=== PATIENT | female | born 1945 | race Caucasian/White ===

== ENCOUNTER 2019-12-14 04:22 | Inpatient (IN) | payer OTHER, BC ==
[2019-12-13 15:30] VITALS: BMI 35.2
[2019-12-14] MEDS ORDERED: DEXAMETHASONE SOD PHOSPHATE/PF 10 MG/ML SDV ONE (07:41)
[2019-12-14] MEDS ORDERED: BUPIVACAINE LIPOSOME/PF (EXPAREL) 266 MG/20 ML VIAL ONE (07:42)
[2019-12-14] MEDS ORDERED: MIDAZOLAM HCL 2 MG/2 ML SINGLE DOSE VIAL ONE ×4 (07:43→07:47)
[2019-12-14] MEDS ORDERED: EPHEDRINE SULFATE/0.9% NACL/PF 50 MG/10 ML SYRINGE NR ONE (07:47)
[2019-12-14] MEDS ORDERED: PROPOFOL 20 ML ONE ×7 (07:47→12:35)
[2019-12-14] MEDS ORDERED: SUCCINYLCHOLINE CHLORIDE 200 MG/10 ML SYRINGE ONE (07:47)
[2019-12-14] MEDS ORDERED: BENZOIN/ALOE VERA/STORAX/TOLU 58 ML BOTTLE ONE (07:50)
[2019-12-14] MEDS ORDERED: DEXMEDETOMIDINE HCL 200 MCG/2 ML IVPB ONE (07:56)
[2019-12-14] MEDS ORDERED: ceFAZolin SODIUM 1 GM VIAL IVPB ONE ×3 (08:40→11:38)
[2019-12-14] MEDS ORDERED: VANCOMYCIN 1,000 MG VIAL (RESTRICTED TO ID ONLY) IVPB ONE ×2 (08:47→11:32)
[2019-12-14] MEDS ORDERED: ceFAZolin SODIUM 1 GM VIAL ONE ×2 (11:42→11:48)
[2019-12-14] MEDS ORDERED: TRANEXAMIC ACID 1000 MG/10 ML VIAL ONE ×2 (11:42→11:48)
[2019-12-14] MEDS ORDERED: DEXAMETHASONE SOD PHOSPHATE 4 MG/1 ML VIAL ONE (11:48)
[2019-12-14] MEDS ORDERED: ONDANSETRON 4 MG/2 ML VIAL ONE (11:48)
[2019-12-14] MEDS ORDERED: VANCOMYCIN 1,000 MG VIAL (RESTRICTED TO ID ONLY) ONE (11:48)
[2019-12-14] MEDS ORDERED: LIDOCAINE HCL/PF 2% SDV 5ML VIAL ONE (11:48)
[2019-12-14] MEDS ORDERED: MAG HYDROX/AL HYDROX/SIMETH 30 ML UNIT-DOSE CUP PO PRN (12:25)
[2019-12-14] MEDS ORDERED: ONDANSETRON 4 MG/2 ML VIAL IVPUSH PRN (12:25)
[2019-12-14] MEDS ORDERED: MECLIZINE HCL 25 MG TABLET (FP) PO PRN (12:25)
[2019-12-14] MEDS ORDERED: MAGNESIUM HYDROX 2400MG/30ML ORAL SUSPENSION 30 ML CUP PO PRN (12:25)
[2019-12-14] MEDS ORDERED: ALBUTEROL SO4 HFA INHALER IH PRN ×2 (12:25→21:53)
[2019-12-14] MEDS ORDERED: CYCLOBENZAPRINE HCL 10 MG TABLET (FP) PO PRN (12:25)
--- NOTE | 2019-12-14 12:25 | PN ---
Progress Note (short form) - Note Progress Note: 74F s/p revision LEFT total knee replacement POD #0. -Admit to ICU post-op. -f/u PACU CBC; If Hemoglobin <10 or Hematocrit <30, transfuse PRBC. -Pain control: per anaesthesia team. -DVT PPx: -Chemical: ASA 81mg PO BID x 6 weeks. -Mechanical: SHAYLA's, SCD's. -Incentive spirometry q15 min. -PT/OT/Rehab, OOB. -WBAT LLE. -Post-op Ancef x 3 doses. -f/u drain output. -Padron catheter care. -f/u post-op TOV: 8 hours max. -f/u AM labs. -Diet as tolerated. -Care per medical hospitalist team. -Discharge planning: f/u [facility] [place] [facility] 7-10 days post hospital discharge; call for appointment . -Will follow. Jesus Egan MD (Orthopaedic Surgery).
[2019-12-14] MEDS ORDERED: LACTATED RINGERS SOLUTION 1,000 ML IV SCH (12:30)
[2019-12-14] MEDS ORDERED: DOCUSATE SODIUM 100 MG CAPSULE (FP) PO PRN (12:47)
[2019-12-14] MEDS ORDERED: HYDROmorphone HCL 2 MG TABLET PO PRN (12:47)
[2019-12-14] MEDS ORDERED: ARTIFICIAL TEARS (POLYVINYL ALCOHOL) OPTH DROPS OU ONE (14:20)
[2019-12-14] MEDS: ACETAMINOPHEN 325 MG TABLET (FP) PO SCH ×3 (18:33→23:55)
[2019-12-14] MEDS: CEFAZOLIN 2 GM/D5W 2 GM/50 ML ML IVPB SCH (18:35)
--- NOTE | 2019-12-14 22:18 | CONSULT ---
Consultation: REQUESTING PROVIDER: Dr. Egan CONSULT REQUEST: We have been asked to medically evaluate this patient for ICU admission HISTORY OF PRESENT ILLNESS: 74F s/p revision LEFT total knee replacement POD #0. In ICU post op for treatment/management. Pain well controlled. REVIEW OF SYSTEMS: CONSTITUTIONAL: Absent: fever, chills, diaphoresis, generalized weakness, malaise, loss of appetite, weight change HEENT: Absent: rhinorrhea, nasal congestion, throat pain, throat swelling, difficulty swallowing, mouth swelling, ear pain, eye pain, visual changes CARDIOVASCULAR: Absent: chest pain, syncope, palpitations, irregular heart rate, lightheadedness, peripheral edema RESPIRATORY: Absent: cough, shortness of breath, dyspnea with exertion, orthopnea, wheezing, stridor, hemoptysis GASTROINTESTINAL: Absent: abdominal pain, abdominal distension, nausea, vomiting, diarrhea, constipation, melena, hematochezia GENITOURINARY: Absent: dysuria, frequency, urgency, hesitancy, hematuria, flank pain, genital pain MUSCULOSKELETAL: L knee pain Absent: myalgia, arthralgia, joint swelling, back pain, neck pain SKIN: Absent: rash, itching, pallor HEMATOLOGIC/IMMUNOLOGIC: Absent: easy bleeding, easy bruising, lymphadenopathy, frequent infections ENDOCRINE: Absent: unexplained weight gain, unexplained weight loss, heat intolerance, cold intolerance NEUROLOGIC: Absent: headache, focal weakness or paresthesias, dizziness, unsteady gait, seizure, mental status changes, bladder or bowel incontinence PSYCHIATRIC: Absent: anxiety, depression, suicidal or homicidal ideation, hallucinations. PHYSICAL EXAMINATION Vital Signs 12/14/19 12/14/19 12/14/19 14:00 14:15 14:40 Temperature 97.5 F L 98.0 F Pulse Rate 56 L 54 L 52 L Respiratory 16 16 13 Rate Blood Pressure 110/80 106/75 116/80 O2 Sat by Pulse 100 100 100 Oximetry (%) 12/14/19 12/14/19 12/14/19 15:00 16:00 17:00 Temperature 98.1 F Pulse Rate 62 70 Respiratory 16 16 Rate Blood Pressure 117/77 115/67 O2 Sat by Pulse 100 100 96 Oximetry (%) GENERAL: Awake, alert, and fully oriented, in no acute distress. HEAD: Normal with no signs of trauma. EYES: PERRL, EOMI ENT: Moist mucous membranes. NECK: normal ROM, supple LUNGS: CTA BL HEART: RRR ABDOMEN: Soft, nontender, not distended MUSCULOSKELETAL: L knee banaged post op, drain in place. R leg FROM UPPER EXTREMITIES: No peripheral edema. LOWER EXTREMITIES: No peripheral edema in R leg. Slight swelling from surgery L leg NEUROLOGICAL: Cranial nerves II-XII intact. Normal speech PSYCHIATRIC: Cooperative. SKIN: Warm, dry, no rashes or lesions noted. Active Medications Generic Name Dose Route Start Last Admin Trade Name Freq PRN Reason Stop Dose Admin Acetaminophen 650 mg 12/14/19 12:45 12/14/19 19:07 Tylenol - PO 12/17/19 12:44 Not Given Q6H MARISELA Al Hydroxide/Mg Hydroxide 30 ml 12/14/19 12:25 Mylanta Oral Suspension - PO Q4H PRN DYSPEPSIA Albuterol Sulfate 2 puff 12/14/19 21:53 Ventolin Hfa Inhaler - IH Q4H PRN WHEEZING Aspirin 81 mg 12/14/19 22:00 Ecotrin - PO BID [facility] Celecoxib 200 mg 12/15/19 10:00 Celebrex - PO DAILY [facility] Clonazepam 0.5 mg 12/14/19 12:25 Klonopin - PO BID PRN ANXIETY Cyclobenzaprine HCl 10 mg 12/14/19 12:25 Flexeril - PO BID PRN MUSCLE SPASMS Docusate Sodium 100 mg 12/14/19 12:47 Colace - PO BID PRN CONSTIPATION Fentanyl 50 mcg 12/14/19 12:43 Sublimaze Injection - IVPUSH [id number] PRN PAIN-PACU ORDER X 4 DOSES ONLY Fluticasone Propionate 1 spray 12/14/19 22:00 Flonase - NS DAILY [facility] Hydromorphone HCl 1 mg 12/14/19 12:47 Dilaudid - PO Q3H PRN PAIN LEVEL 4 - 6 Hydromorphone HCl 2 mg 12/14/19 12:47 Dilaudid - PO Q3H PRN PAIN LEVEL 7 - 10 Lactated Ringer's 1,000 mls @ 125 mls/hr 12/14/19 12:30 12/14/19 14:30 Lactated Ringers Solution IV 12/15/19 06:00 125 mls/hr ASDIR MARISELA Administration Cefazolin Sodium/Dextrose 2 gm in 50 mls @ 100 mls/hr 12/14/19 19:00 12/14/19 18:35 Ancef 2 Gm Premixed Ivpb - IVPB 12/15/19 07:29 100 mls/hr Q6H MARISELA Administration Levothyroxine Sodium 50 mcg 12/15/19 07:00 Synthroid - PO ACBK MARISELA Magnesium Hydroxide 30 ml 12/14/19 12:25 Milk Of Magnesia - PO PRN PRN CONSTIPATION Meclizine HCl 25 mg 12/14/19 12:25 Antivert - PO ASDIR PRN VERTIGO Montelukast Sodium 10 mg 12/14/19 22:00 Singulair - PO HS MARISELA Non-Formulary Medication 1 puff 12/14/19 12:25 Fluticasone/Salmeterol [Advair Hfa 115-21 Mcg Inhaler] IH ASDIR PRN WHEEZING Sozcc-1-Pwda Ethyl Esters 1 gm 12/15/19 10:00 Lovaza - PO DAILY MARISELA Ondansetron HCl 4 mg 12/14/19 12:25 Zofran Injection IVPUSH Q6H PRN NAUSEA Pantoprazole Sodium 40 mg 12/15/19 10:00 Protonix - PO DAILY MARISELA Ropinirole HCl 0.5 mg 12/14/19 22:00 Requip - PO HS MARISELA Senna/Docusate Sodium 2 tablet 12/14/19 22:00 Pericolace - PO BID MARISELA Solifenacin 10 mg 12/15/19 10:00 Vesicare - PO DAILY MARISELA Zolpidem Tartrate 5 mg 12/14/19 22:00 Ambien - PO HS PRN INSOMNIA ASSESSMENT/PLAN: 74 yo female s/p revision LEFT total knee replacement 12/14/19. Admitted to ICU for post op management and observation. Neuro - alert oriented - dilaudid for pain management - zolpidem to sleep Pulm - saturating 98% RA - maintain sat > 94% - Albuterol 2 puff Q4h PRN for wheezing - Incentive spirometry q15 min. Cardio - no issues - continue aspirin Heme - f/u PACU CBC; If Hemoglobin <10 or Hematocrit <30, transfuse PRBC - monitor H/H ID - Post-op Ancef x 3 doses. Renal - harvey in place - f/u drain output Endo - hypothyroid, continue synthroid FEN - diet as tolerated - IVF DVT ppx - TEDs, SCDs - ASA 81mg PO BID x 6 weeks GI ppx - 40 mg protonix daily Dispo: -Discharge planning: f/u [facility] [place] [facility] 7-10 days post hospital discharge; call for appointment . Visit type - Medication Review Med list reviewed for High Risk Meds patients 65 and older: Yes - Emergency Visit Emergency Visit: Yes ED Registration Date: 12/14/19 Care time: The patient presented to the Emergency Department on the above date and was hospitalized for further evaluation of their emergent condition. - New Patient This patient is new to me today: Yes Date on this admission: 12/14/19 - Critical Care Critical Care patient: Yes Total Critical Care Time (in minutes): 36 Critical Care Statement: The care of this patient involved high complexity decision making to prevent further life threatening deterioration of the patient's condition and/or to evaluate & treat vital organ system(s) failure or risk of failure. ATTENDING PHYSICIAN STATEMENT I saw and evaluated the patient. I reviewed the resident's note and discussed the case with the resident. I agree with the resident's findings and plan as documented. SUBJECTIVE: OBJECTIVE: ASSESSMENT AND PLAN:
[2019-12-14] MEDS: clonazePAM 0.5 MG TABLET PO PRN (22:33)
[2019-12-14] MEDS: MONTELUKAST NA 10 MG TABLET PO SCH (22:33)
[2019-12-14] MEDS: FLUTICASONE PROP 0.05% 16 GM NASAL SPRAY NS SCH (22:33)
[2019-12-14] MEDS: ASPIRIN COATED 81 MG TABLET.EC PO SCH (22:33)
[2019-12-14] MEDS: SENNOSIDES/DOCUSATE COMBO (SENNA PLUS) TABLET (UD) PO SCH (22:34)
[2019-12-14] MEDS: HYDROmorphone HCL 2 MG TABLET PO PRN (22:37)
[2019-12-14] MEDS: rOPINIRole HCL 0.5 MG TABLET PO SCH (22:38)
[2019-12-15 00:23] LABS: HEMATOCRIT 31.2 % (32.4-45.2); HEMOGLOBIN 10.7 GM/dL (10.7-15.3); MCH 31.3 pg (25.7-33.7); MCHC 34.1 g/dl (32.0-36.0); MEAN CELL VOLUME 91.7 fl (80-96); PLATELET COUNT 169 K/MM3 (134-434); RBC 3.41 M/mm3 (3.60-5.2); RDW 13.8 % (11.6-15.6); WHITE BLOOD COUNT 5.3 K/mm3 (4.0-10.0)
[2019-12-15] MEDS: ZOLPIDEM TARTRATE 5 MG TABLET PO PRN ×2 (01:06→22:17)
[2019-12-15] MEDS: CEFAZOLIN 2 GM/D5W 2 GM/50 ML ML IVPB SCH ×2 (01:07→07:30)
[2019-12-15] MEDS: ACETAMINOPHEN 325 MG TABLET (FP) PO SCH ×3 (06:45→18:39)
[2019-12-15] MEDS: LEVOTHYROXINE NA 50 MCG TABLET (FP) PO SCH (06:45)
[2019-12-15 07:17] LABS: HEMATOCRIT 32.8 % (32.4-45.2); HEMOGLOBIN 11.1 GM/dL (10.7-15.3); MCHC 33.9 g/dl (32.0-36.0); MEAN CELL VOLUME 91.3 fl (80-96); MEAN PLT VOLUME 7.3 fl (7.5-11.1); PLATELET COUNT 188 K/MM3 (134-434); RBC 3.59 M/mm3 (3.60-5.2); RDW 13.3 % (11.6-15.6)
[2019-12-15 07:32] LABS: POTASSIUM 4.1 mmol/L (3.5-5.1)
[2019-12-15 07:37] LABS: BLOOD UREA NITROGEN 14.4 mg/dL (7-18); CALCIUM 8.3 mg/dL (8.5-10.1)
[2019-12-15 07:41] LABS: CREATININE 0.6 mg/dL (0.55-1.3)
[2019-12-15] MEDS: ASPIRIN COATED 81 MG TABLET.EC PO SCH ×2 (09:31→22:17)
[2019-12-15] MEDS: PANTOPRAZOLE 40 MG TABLET PO SCH (09:31)
[2019-12-15] MEDS: OMEGA-3 ACID ETHYL ESTERS (FATTY-ACIDS) 1 GM CAPSULE (FP) PO SCH (09:31)
[2019-12-15] MEDS: clonazePAM 0.5 MG TABLET PO PRN ×2 (09:32→22:17)
[2019-12-15] MEDS: HYDROmorphone HCL 2 MG TABLET PO PRN ×3 (09:32→18:37)
[2019-12-15] MEDS: SENNOSIDES/DOCUSATE COMBO (SENNA PLUS) TABLET (UD) PO SCH ×2 (09:32→22:17)
--- NOTE | 2019-12-15 11:01 | OP ---
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 OPERATION PERFORMED: 1. Explant left femur and tibia. 2. Revision left total knee arthroplasty (2 components). (07967) 3. Extensive synovectomy. ([id number]) ANESTHESIA: Conscious sedation with spinal anesthesia and peripheral nerve block. ANTIBIOTICS GIVEN: Ancef 2 g, 1 g vancomycin preop. Ancef 1 g given at the time of release of the tourniquet. TOURNIQUET TIME: Two hours and 30 minutes. OPERATION DETAILS: Patient correctly identified and brought in the operating room. Left lower extremity was prepped and draped in the routine manner with Betadine scrub solution, wiped off with alcohol, DuraPrep applied. Imaging was available for intraoperative evaluation. The preoperative evaluation revealed multimodal loosening of the ligamentous envelope around the knee. The CT scan and previous preoperative workup revealed significant osteolysis in the tibia, particularly on the lateral tibial plateau. Timeout was called. All imaging was available for intraoperative evaluation. The knee was opened with a longitudinal incision following the exact incision that was performed before. This was extended proximally and distally. The soft tissues were dissected off the proximomedial aspect of the vastus medialis, and a proximomedial tibial surface was free of soft tissue, exposing the soft tissue bed with sharp dissection. The knee was flexed. The patella was subluxed laterally, not capsized. The finding intraoperative was catastrophic failure of the polyethylene. At that point, the peg had broken off. The first thing to be performed was removal of the tibial component. This appeared still to be seated. Using a small oscillating saw, the junction between the metal and the cement was transected using a small oscillating saw, and with osteotomes working around the lateral side of the knee, the tibial base plate was clearly easily visualized and the entire tibial tray removed. The cement was adherent and well seated against the bone. The undersurface of the cement mantle on the lateral side of the tibial plateau was deficient, with degenerative caseous material in keeping with polyethylene debris. There was no sign of infection. A soft tissue biopsy was not sent as this was completely clear this fitted well with the preoperative radiological as well as serological and benign inflammatory marker blood tests that were performed on a number of occasions preoperatively. The cement mantle had to be removed. We cut this off using the small oscillating saw, delivered the cement by imploding it into the bone bed, and the tibia was cleared of all the cement appropriately. The tibia was reamed to a size 15, and a size 15 x size 4 tibial tray was measured and seated after preparing the proximal tibial bone bed with the appropriate reaming, seated well and flush onto the bone bed. This was aligned to the middle of the talus so that the tibial shaft was 90 degrees to the actual plateau. The femur was then removed. This was by utilizing a Gigli saw in the anterior distal part of the femoral component surface. The posterior elements were removed using the offset osteotome. This tibia was delivered with minimal bone removal. Reaming of the femur was to size 17 and a size 3 femoral component. The appropriate round femoral jig was utilized to start off the entire bony cuts. We resected bone off the distal femur both on the medial and lateral side as well as posteriorly. The posterior bone facilitated the easy insertion of the size 3 femoral component. The spacer blocks were then measured and were found to be equal at almost 30 mm both in flexion and extension. On the basis of this, a 10-mm buildup on the tibia was performed, and the femur a lateral 1.5-mm block and a 10-mm medial block utilized. With the trialing components and the 19-mm polyethylene posterior stabilized liner gave excellent alignment of the implants, and no instability in the coronal as well as sagittal plane. In flexion, shuck test was negative, and patella tracking was beautifully well maintained with a negative thumb test. Once we were happy with the trialing of all these components, the bone bed was thoroughly lavaged. All extraneous debris was removed. Cementing was in 1 stage, tibia then femur. Solid fixation achieved. Once the cement had cured, extraneous cement was removed appropriately. The full synovectomy was then performed extensively right across the entire medial and lateral gutters and soft tissue bed. CLOSURE: Quadriceps tendon in 1 layer of Vicryl, subcutaneous 1 and 2-0 Vicryl, skin jm. DRAINAGE: One 19-Irish drain inserted. OVERALL COMMENT: Operation went extremely well. No complications. MD HEIDI Chairez/[id number] MTDD
[2019-12-15] MEDS: SOLIFENACIN SUCCINATE 5 MG TAB PO SCH (12:15)
[2019-12-15] MEDS: CELECOXIB 200 MG CAPSULE PO SCH (12:19)
[2019-12-15] MEDS: FLUTICASONE PROP 0.05% 16 GM NASAL SPRAY NS SCH (12:20)
--- NOTE | 2019-12-15 13:15 | PN ---
Progress Note (short form) - Note Progress Note: POD#1 ICU C/O incisional pain Vitals stable CVS Stable Resp Clear ABD Soft Flatus passed LE Wound dry Drain in situ No NVDsensory and motor No calf or subsartorial tenderness PLAN PT mobilize FWBAT Pain Mx Added Toradol T/F to floor as necessary Keep Padron See tomorrow
[2019-12-15] MEDS ORDERED: KETOROLAC TROMETHAMINE 30 MG/1 ML VIAL IVPUSH ONE (14:00)
[2019-12-15] MEDS: KETOROLAC TROMETHAMINE 30 MG/1 ML VIAL IVPUSH SCH (18:38)
[2019-12-15] MEDS: MONTELUKAST NA 10 MG TABLET PO SCH (22:17)
[2019-12-15] MEDS: FLUTICASONE/SALMETEROL 100 MCG/50 MCG DISKUS IH SCH (22:19)
[2019-12-15] MEDS: rOPINIRole HCL 0.5 MG TABLET PO SCH (22:19)
[2019-12-16] MEDS: ACETAMINOPHEN 325 MG TABLET (FP) PO SCH ×4 (02:19→20:28)
[2019-12-16] MEDS: KETOROLAC TROMETHAMINE 30 MG/1 ML VIAL IVPUSH SCH ×3 (02:19→18:08)
[2019-12-16] MEDS: LEVOTHYROXINE NA 50 MCG TABLET (FP) PO SCH (06:41)
[2019-12-16 07:26] LABS: HEMATOCRIT 31.8 % (32.4-45.2); MCH 31.3 pg (25.7-33.7); MCHC 34.5 g/dl (32.0-36.0); MEAN CELL VOLUME 90.9 fl (80-96); MEAN PLT VOLUME 7.3 fl (7.5-11.1); PLATELET COUNT 159 K/MM3 (134-434); RDW 13.6 % (11.6-15.6); WHITE BLOOD COUNT 4.2 K/mm3 (4.0-10.0)
[2019-12-16] MEDS ORDERED: PT OWN MED DRAWER 7, Y5N ONE (09:09)
[2019-12-16] MEDS: FLUTICASONE/SALMETEROL 100 MCG/50 MCG DISKUS IH SCH ×3 (10:08→21:44)
[2019-12-16] MEDS: CELECOXIB 200 MG CAPSULE PO SCH (10:09)
[2019-12-16] MEDS: OMEGA-3 ACID ETHYL ESTERS (FATTY-ACIDS) 1 GM CAPSULE (FP) PO SCH (10:10)
[2019-12-16] MEDS: ASPIRIN COATED 81 MG TABLET.EC PO SCH ×2 (10:10→22:40)
[2019-12-16] MEDS: FLUTICASONE PROP 0.05% 16 GM NASAL SPRAY NS SCH (10:10)
[2019-12-16] MEDS: SENNOSIDES/DOCUSATE COMBO (SENNA PLUS) TABLET (UD) PO SCH ×3 (10:11→22:44)
[2019-12-16] MEDS: SOLIFENACIN SUCCINATE 5 MG TAB PO SCH (10:11)
[2019-12-16] MEDS: PANTOPRAZOLE 40 MG TABLET PO SCH (10:11)
[2019-12-16] MEDS: HYDROmorphone HCL 2 MG TABLET PO PRN (17:17)
[2019-12-16] MEDS: rOPINIRole HCL 0.5 MG TABLET PO SCH (22:39)
[2019-12-16] MEDS: clonazePAM 0.5 MG TABLET PO PRN (22:41)
[2019-12-16] MEDS: MONTELUKAST NA 10 MG TABLET PO SCH (22:41)
[2019-12-16] MEDS: ZOLPIDEM TARTRATE 5 MG TABLET PO PRN (22:41)
[2019-12-17] MEDS: ACETAMINOPHEN 325 MG TABLET (FP) PO SCH ×2 (01:25→06:23)
[2019-12-17] MEDS: KETOROLAC TROMETHAMINE 30 MG/1 ML VIAL IVPUSH SCH ×3 (01:30→18:55)
[2019-12-17] MEDS: LEVOTHYROXINE NA 50 MCG TABLET (FP) PO SCH (06:27)
[2019-12-17] MEDS ORDERED: PT OWN MED DRAWER 7, Y5N ONE ×2 (08:53→20:58)
--- NOTE | 2019-12-17 09:05 | PN ---
Physical Exam: SUBJECTIVE: Patient seen and examined at bedside this morning. No acute events overnight. Patient was admitted three days ago s/p revision of Left total knee replacement. Patient remained stable throughout hospital stay, and was stable for transfer to surgical floor. Today, patient reports eating well, and was able to walk to the bathroom with assist. Pain control with toradol. Patient had bowel movement yesterday, denies any fevers, chills, headache, dizziness, chest pain, shortness of breath, abdominal pain, diarrhea, urinary symptoms. TRENT drain output 75cc overnight. OBJECTIVE: Vital Signs Temperature 98.6 F 12/17/19 06:00 Pulse Rate 77 12/17/19 06:00 Respiratory Rate 18 12/17/19 06:00 Blood Pressure 108/62 12/17/19 06:00 O2 Sat by Pulse Oximetry (%) 97 12/17/19 06:00 GENERAL: The patient is awake, alert, and fully oriented, in no acute distress. HEAD: Normal with no signs of trauma. EYES:PERRLA, EOMI, sclera anicteric, conjunctiva clear. ENT:moist mucous membranes. NECK: Trachea midline, full range of motion, supple. LUNGS: Breath sounds equal, clear to auscultation bilaterally HEART: Regular rate and rhythm, S1, S2 ABDOMEN: Soft, nontender, nondistended, normoactive bowel sounds EXTREMITIES: 2+ pulses, warm, well-perfused, no edema. LLE: +bandage c/d/i, TRENT drain minimal blood NEUROLOGICAL: Cranial nerves II through XII grossly intact. Normal speech PSYCH: Normal mood, normal affect. SKIN: Warm, dry, normal turgor Active Medications Generic Name Dose Route Start Last Admin Trade Name Freq PRN Reason Stop Dose Admin Acetaminophen 650 mg 12/14/19 12:45 12/17/19 06:23 Tylenol - PO 12/17/19 12:44 Not Given Q6H MARISELA Al Hydroxide/Mg Hydroxide 30 ml 12/14/19 12:25 Mylanta Oral Suspension - PO Q4H PRN DYSPEPSIA Albuterol Sulfate 2 puff 12/14/19 21:53 12/14/19 22:38 Ventolin Hfa Inhaler - IH 2 puff Q4H PRN Administration WHEEZING Aspirin 81 mg 12/14/19 22:00 12/16/19 22:40 Ecotrin - PO 81 mg BID MARISELA Administration Celecoxib 200 mg 12/15/19 10:00 12/16/19 10:09 Celebrex - PO 200 mg DAILY MARISELA Administration Clonazepam 0.5 mg 12/14/19 12:25 12/16/19 22:41 Klonopin - PO 0.5 mg BID PRN Administration ANXIETY Cyclobenzaprine HCl 10 mg 12/14/19 12:25 12/15/19 09:34 Flexeril - PO 10 mg BID PRN Administration MUSCLE SPASMS Docusate Sodium 100 mg 12/14/19 12:47 12/15/19 09:32 Colace - PO 100 mg BID PRN Administration CONSTIPATION Fentanyl 50 mcg 12/14/19 12:43 Sublimaze Injection - IVPUSH [id number] PRN PAIN-PACU ORDER X 4 DOSES ONLY Fluticasone Propionate 1 spray 12/14/19 22:00 12/16/19 10:10 Flonase - NS 1 spray DAILY MARISELA Administration Hydromorphone HCl 1 mg 12/14/19 12:47 12/15/19 01:06 Dilaudid - PO 1 mg Q3H PRN Administration PAIN LEVEL 4 - 6 Hydromorphone HCl 2 mg 12/14/19 12:47 12/16/19 17:17 Dilaudid - PO 2 mg Q3H PRN Administration PAIN LEVEL 7 - 10 Ketorolac Tromethamine 30 mg 12/15/19 18:00 12/17/19 01:30 Toradol Injection - IVPUSH 12/20/19 17:59 30 mg Q8H-IV MARISELA Administration Levothyroxine Sodium 50 mcg 12/15/19 07:00 12/17/19 06:27 Synthroid - PO 50 mcg ACBK MARISELA Administration Magnesium Hydroxide 30 ml 12/14/19 12:25 Milk Of Magnesia - PO PRN PRN CONSTIPATION Meclizine HCl 25 mg 12/14/19 12:25 Antivert - PO Q8H PRN VERTIGO Montelukast Sodium 10 mg 12/14/19 22:00 12/16/19 22:41 Singulair - PO 10 mg HS MARISELA Administration Txtaf-0-Zvvc Ethyl Esters 1 gm 12/15/19 10:00 12/16/19 10:10 Lovaza - PO 1 gm DAILY MARISELA Administration Ondansetron HCl 4 mg 12/14/19 12:25 Zofran Injection IVPUSH Q6H PRN NAUSEA Pantoprazole Sodium 40 mg 12/15/19 10:00 12/16/19 10:11 Protonix - PO 40 mg DAILY MARISELA Administration Ropinirole HCl 0.5 mg 12/14/19 22:00 12/16/19 22:39 Requip - PO Not Given HS MARISELA Fluticasone/Salmeterol 1 puff 12/15/19 22:00 12/16/19 21:44 Advair 100mcg/50mcg - IH Not Given BID MARISELA Senna/Docusate Sodium 2 tablet 12/14/19 22:00 12/16/19 22:44 Pericolace - PO Not Given BID MAIRSELA Solifenacin 10 mg 12/15/19 10:00 12/16/19 10:11 Vesicare - PO 10 mg DAILY MARISELA Administration Zolpidem Tartrate 5 mg 12/14/19 22:00 12/16/19 22:41 Ambien - PO 5 mg HS PRN Administration INSOMNIA ASSESSMENT/PLAN: Patient is a 74 yo female s/p revision LEFT total knee replacement 12/14/19. Initially admitted to ICU for post-op care, subsequently transferred to surgical floor once stable. #s/p revision Left total knee replacement -POD 3 -TRENT drain 75cc overnight -H/H stable -continue PT/OT/rehab, OOB -WBAT LLE -pain control per anesthesia/surgery -continue ASA 81mg PO BID x 6 weeks. -Ortho on board. Recs appreciated. #FEN -Not on any standing fluids -Routine bmp monitoring -Regular diet #Prophylaxis -SCDs, TEDs -ASA 81mg PO BID x 6 weeks #Disposition -full code -await further surgery recs. To follow up with Dr. Egan in 7-10 days upon discharge. Visit type - Emergency Visit Emergency Visit: Yes ED Registration Date: 12/14/19 Care time: The patient presented to the Emergency Department on the above date and was hospitalized for further evaluation of their emergent condition. - New Patient This patient is new to me today: Yes Date on this admission: 12/18/19 - Critical Care Critical Care patient: No - Medication Review Med list reviewed for High Risk Meds patients 65 and older: Yes ATTENDING PHYSICIAN STATEMENT I saw and evaluated the patient. I reviewed the resident's note and discussed the case with the resident. I agree with the resident's findings and plan as documented. SUBJECTIVE: OBJECTIVE: ASSESSMENT AND PLAN:
[2019-12-17] MEDS: HYDROmorphone HCL 2 MG TABLET PO PRN ×2 (10:13→18:43)
[2019-12-17] MEDS: FLUTICASONE/SALMETEROL 100 MCG/50 MCG DISKUS IH SCH ×2 (10:51→21:34)
[2019-12-17] MEDS: CELECOXIB 200 MG CAPSULE PO SCH (10:53)
[2019-12-17] MEDS: FLUTICASONE PROP 0.05% 16 GM NASAL SPRAY NS SCH (10:53)
[2019-12-17] MEDS: ASPIRIN COATED 81 MG TABLET.EC PO SCH ×2 (10:53→21:25)
[2019-12-17] MEDS: PANTOPRAZOLE 40 MG TABLET PO SCH (10:56)
[2019-12-17] MEDS: OMEGA-3 ACID ETHYL ESTERS (FATTY-ACIDS) 1 GM CAPSULE (FP) PO SCH (10:56)
[2019-12-17] MEDS: SENNOSIDES/DOCUSATE COMBO (SENNA PLUS) TABLET (UD) PO SCH ×2 (10:56→21:31)
[2019-12-17] MEDS: SOLIFENACIN SUCCINATE 5 MG TAB PO SCH (10:57)
[2019-12-17] MEDS ORDERED: ACETAMINOPHEN 325 MG TABLET (FP) PO PRN (17:52)
[2019-12-17] MEDS ORDERED: HYDROmorphone HCL 2 MG TABLET PO PRN (17:53)
[2019-12-17] MEDS ORDERED: clonazePAM 0.5 MG TABLET PO PRN (17:57)
--- NOTE | 2019-12-17 18:18 | PN ---
Teaching Attending Note Name of Resident: Sanam Niño ATTENDING PHYSICIAN STATEMENT I saw and evaluated the patient. I reviewed the resident's note and discussed the case with the resident. I agree with the resident's findings and plan as documented. SUBJECTIVE: Patient seen and examined at bedside, POD#3 for L TKR, ambulating, tolerating PO, drain still with danica blood. VSS. OBJECTIVE: GA sitting in chair, AAOx3, ambulatory HEENT nC/AT, EOMI, neck supple Chest CTAB, no crackles or wheezing CVS s1, s2+, RRR Abd obese, SOft, NT, ND Ext no LE edema Vital Signs (72 hours) 12/15/19 12/15/19 12/15/19 00:00 02:00 04:00 Temperature 98.5 F Pulse Rate 84 87 95 H Respiratory 14 14 18 Rate Blood Pressure 86/48 L 95/44 L 94/50 L O2 Sat by Pulse 100 Oximetry (%) 12/15/19 12/15/19 12/15/19 06:00 08:00 08:45 Temperature 98.7 F Pulse Rate 77 79 Respiratory 17 18 Rate Blood Pressure 100/58 L 105/68 O2 Sat by Pulse 98 98 Oximetry (%) 12/15/19 12/15/19 12/15/19 09:36 10:00 12:00 Temperature 99.1 F Pulse Rate 97 H 90 85 Respiratory 18 18 18 Rate Blood Pressure 98/56 L 120/43 L 112/64 O2 Sat by Pulse 98 94 L 96 Oximetry (%) 12/15/19 12/15/19 12/15/19 13:00 14:00 16:00 Temperature 98.5 F Pulse Rate 63 67 78 Respiratory 18 18 18 Rate Blood Pressure 114/91 110/62 100/58 L O2 Sat by Pulse 97 98 Oximetry (%) 12/15/19 12/15/19 12/16/19 20:00 22:00 00:00 Temperature 98.6 F Pulse Rate 69 71 82 Respiratory 19 20 21 H Rate Blood Pressure 122/67 129/67 122/70 O2 Sat by Pulse 97 95 94 L Oximetry (%) 12/16/19 12/16/19 12/16/19 02:00 04:00 06:00 Temperature 98.3 F Pulse Rate 91 H 82 77 Respiratory 18 20 21 H Rate Blood Pressure 131/76 122/70 100/60 O2 Sat by Pulse 95 Oximetry (%) 12/16/19 12/16/19 12/16/19 08:00 08:48 10:00 Temperature 98.2 F 98.3 F Pulse Rate 74 86 Respiratory 21 H 21 H 21 H Rate Blood Pressure 110/63 107/59 L O2 Sat by Pulse 94 L 94 L 95 Oximetry (%) 12/16/19 12/16/19 12/16/19 12:00 21:00 22:00 Temperature 98.0 F 98.5 F Pulse Rate 79 74 Respiratory 21 H 19 19 Rate Blood Pressure 123/65 124/64 O2 Sat by Pulse 96 98 98 Oximetry (%) 12/17/19 12/17/19 12/17/19 06:00 08:56 10:00 Temperature 98.6 F 98.1 F Pulse Rate 77 79 Respiratory 18 19 Rate Blood Pressure 108/62 116/60 O2 Sat by Pulse 97 94 L 95 Oximetry (%) 12/17/19 12/17/19 14:00 18:00 Temperature 98.9 F 98.9 F Pulse Rate 75 82 Respiratory 19 Rate Blood Pressure 104/63 126/91 O2 Sat by Pulse 97 98 Oximetry (%) Home Medications Medication Instructions Recorded Albuterol Sulfate [Albuterol 2 puff IH ASDIR PRN 12/07/19 Sulfate Hfa] Aspirin [Aspirin EC] 81 mg PO DAILY 12/07/19 Cyclobenzaprine HCl [Flexeril 10 10 mg PO BID PRN 12/07/19 mg] Fluticasone/Salmeterol [Advair Hfa 1 puff IH ASDIR PRN 12/07/19 115-21 Mcg Inhaler] Icosapent Ethyl [Vascepa] 1 gm PO DAILY 12/07/19 Levothyroxine [Synthroid -] 50 mcg PO DAILY 12/07/19 Meclizine HCl 25 mg PO ASDIR PRN 12/07/19 Oxybutynin Chloride [Oxybutynin 15 mg PO DAILY 12/07/19 Chloride ER] Ropinirole HCl [Requip -] 0.5 mg PO HS 12/07/19 Zolpidem Tartrate [Ambien] 10 mg PO HS 12/07/19 clonazePAM [Klonopin -] 0.5 mg PO BID PRN 12/07/19 Diphenhydramine HCl [Benadryl 2 cap PO PRN PRN 12/12/19 Capsule -] Hydrocodone/Acetaminophen 1 tab PO PRN PRN 12/12/19 [Hydrocodone-Acetamin 7.5-300] Montelukast Na [Singulair -] 10 mg PO HS 12/13/19 Current Medications Generic Name Dose Route Start Last Admin Trade Name Freq PRN Reason Stop Dose Admin Acetaminophen 650 mg 12/17/19 17:52 Tylenol - PO Q6H PRN Fever Or Pain Al Hydroxide/Mg Hydroxide 30 ml 12/14/19 12:25 Mylanta Oral Suspension - PO Q4H PRN DYSPEPSIA Albuterol Sulfate 2 puff 12/14/19 21:53 12/14/19 22:38 Ventolin Hfa Inhaler - IH 2 puff Q4H PRN Administration WHEEZING Aspirin 81 mg 12/14/19 22:00 12/17/19 21:25 Ecotrin - PO 81 mg BID MARISELA Administration Celecoxib 200 mg 12/15/19 10:00 12/17/19 10:53 Celebrex - PO 200 mg DAILY MARISELA Administration Clonazepam 0.5 mg 12/17/19 17:57 12/17/19 21:31 Klonopin - PO 0.5 mg Q12H PRN Administration ANXIETY Cyclobenzaprine HCl 10 mg 12/14/19 12:25 12/15/19 09:34 Flexeril - PO 10 mg BID PRN Administration MUSCLE SPASMS Docusate Sodium 100 mg 12/14/19 12:47 12/15/19 09:32 Colace - PO 100 mg BID PRN Administration CONSTIPATION Fentanyl 50 mcg 12/14/19 12:43 Sublimaze Injection - IVPUSH [id number] PRN PAIN-PACU ORDER X 4 DOSES ONLY Fluticasone Propionate 1 spray 12/14/19 22:00 12/17/19 10:53 Flonase - NS 1 spray DAILY MARISELA Administration Hydromorphone HCl 2 mg 12/17/19 17:53 12/17/19 18:43 Dilaudid - PO 2 mg Q3H PRN Administration PAIN LEVEL 7 - 10 Hydromorphone HCl 1 mg 12/17/19 17:53 Dilaudid - PO Q3H PRN PAIN LEVEL 4 - 6 Ketorolac Tromethamine 30 mg 12/15/19 18:00 12/17/19 18:55 Toradol Injection - IVPUSH 12/20/19 17:59 30 mg Q8H-IV MARISELA Administration Levothyroxine Sodium 50 mcg 12/15/19 07:00 12/17/19 06:27 Synthroid - PO 50 mcg ACBK MARISELA Administration Magnesium Hydroxide 30 ml 12/14/19 12:25 Milk Of Magnesia - PO PRN PRN CONSTIPATION Meclizine HCl 25 mg 12/14/19 12:25 Antivert - PO Q8H PRN VERTIGO Montelukast Sodium 10 mg 12/14/19 22:00 12/17/19 21:31 Singulair - PO 10 mg HS MARISELA Administration [id number] Ethyl Esters 1 gm 12/15/19 10:00 12/17/19 10:56 Lovaza - PO 1 gm DAILY MARISELA Administration Ondansetron HCl 4 mg 12/14/19 12:25 Zofran Injection IVPUSH Q6H PRN NAUSEA Pantoprazole Sodium 40 mg 12/15/19 10:00 12/17/19 10:56 Protonix - PO 40 mg DAILY MARISELA Administration Ropinirole HCl 0.5 mg 12/14/19 22:00 12/17/19 21:24 Requip - PO 0.5 mg HS MARISELA Administration Fluticasone/Salmeterol 1 puff 12/15/19 22:00 12/17/19 21:34 Advair 100mcg/50mcg - IH Not Given BID MARISELA Senna/Docusate Sodium 2 tablet 12/14/19 22:00 12/17/19 21:31 Pericolace - PO Not Given BID MARISELA Solifenacin 10 mg 12/15/19 10:00 12/17/19 10:57 Vesicare - PO 10 mg DAILY MARISELA Administration Zolpidem Tartrate 5 mg 12/14/19 22:00 12/17/19 21:25 Ambien - PO 5 mg HS PRN Administration INSOMNIA ASSESSMENT AND PLAN: 74 F L TKR POD#3 HTN HLD Depression Insomnia RLS GERD Obesity Asthma Vertigo Plan: Cont. Pain control OOB to chair, minimize use of opioids Supplement bowel regimen cont. PT ASA 81mg BID for DVT ppx Plan for poss. DC in AM pending surgery follow up
--- NOTE | 2019-12-17 20:35 | PN ---
Progress Note (short form) - Note Progress Note: POD#3 C/O Mild incisional pain Sitting in chair Did walk in the hallway Vitals stable Apyrexial CVS Stable Resp Clear ABD Soft Flatus passed LE Wound dry Drain in situ No NVDsensory and motor No calf or subsartorial tenderness PLAN PT mobilize FWBAT Pain Mx Added Toradol See tomorrow ? for D/C drain If ambulating D/C home See in office 10 days Keep wound dry PT mobilize and strengthen LE Aspirin 81mg BD for VTE propyhylaxis.
[2019-12-17] MEDS: rOPINIRole HCL 0.5 MG TABLET PO SCH (21:24)
[2019-12-17] MEDS: ZOLPIDEM TARTRATE 5 MG TABLET PO PRN (21:25)
[2019-12-17] MEDS: MONTELUKAST NA 10 MG TABLET PO SCH (21:31)
[2019-12-18] MEDS: KETOROLAC TROMETHAMINE 30 MG/1 ML VIAL IVPUSH SCH (02:19)
[2019-12-18] MEDS: LEVOTHYROXINE NA 50 MCG TABLET (FP) PO SCH (06:45)
--- NOTE | 2019-12-18 08:25 | PN ---
Progress Note, Physician - Current Medication List Current Medications: Active Medications Acetaminophen (Tylenol -) 650 mg PO Q6H PRN PRN Reason: Fever Or Pain Al Hydroxide/Mg Hydroxide (Mylanta Oral Suspension -) 30 ml PO Q4H PRN PRN Reason: DYSPEPSIA Albuterol Sulfate (Ventolin Hfa Inhaler -) 2 puff IH Q4H PRN PRN Reason: WHEEZING Last Admin: 12/14/19 22:38 Dose: 2 puff Documented by: Aspirin (Ecotrin -) 81 mg PO BID [facility] Last Admin: 12/17/19 21:25 Dose: 81 mg Documented by: Celecoxib (Celebrex -) 200 mg PO DAILY [facility] Last Admin: 12/17/19 10:53 Dose: 200 mg Documented by: Clonazepam (Klonopin -) 0.5 mg PO Q12H PRN PRN Reason: ANXIETY Last Admin: 12/17/19 21:31 Dose: 0.5 mg Documented by: Cyclobenzaprine HCl (Flexeril -) 10 mg PO BID PRN PRN Reason: MUSCLE SPASMS Last Admin: 12/15/19 09:34 Dose: 10 mg Documented by: Docusate Sodium (Colace -) 100 mg PO BID PRN PRN Reason: CONSTIPATION Last Admin: 12/15/19 09:32 Dose: 100 mg Documented by: Fentanyl (Sublimaze Injection -) 50 mcg IVPUSH [id number] PRN PRN Reason: PAIN-PACU ORDER X 4 DOSES ONLY Fluticasone Propionate (Flonase -) 1 spray NS DAILY [facility] Last Admin: 12/17/19 10:53 Dose: 1 spray Documented by: Hydromorphone HCl (Dilaudid -) 2 mg PO Q3H PRN PRN Reason: PAIN LEVEL 7 - 10 Last Admin: 12/17/19 18:43 Dose: 2 mg Documented by: Hydromorphone HCl (Dilaudid -) 1 mg PO Q3H PRN PRN Reason: PAIN LEVEL 4 - 6 Levothyroxine Sodium (Synthroid -) 50 mcg PO ACBK [facility] Last Admin: 12/18/19 06:45 Dose: 50 mcg Documented by: Magnesium Hydroxide (Milk Of Magnesia -) 30 ml PO PRN PRN PRN Reason: CONSTIPATION Meclizine HCl (Antivert -) 25 mg PO Q8H PRN PRN Reason: VERTIGO Montelukast Sodium (Singulair -) 10 mg PO HS [facility] Last Admin: 12/17/19 21:31 Dose: 10 mg Documented by: [id number] Ethyl Esters (Lovaza -) 1 gm PO DAILY [facility] Last Admin: 12/17/19 10:56 Dose: 1 gm Documented by: Ondansetron HCl (Zofran Injection) 4 mg IVPUSH Q6H PRN PRN Reason: NAUSEA Pantoprazole Sodium (Protonix -) 40 mg PO DAILY [facility] Last Admin: 12/17/19 10:56 Dose: 40 mg Documented by: Ropinirole HCl (Requip -) 0.5 mg PO HS [facility] Last Admin: 12/17/19 21:24 Dose: 0.5 mg Documented by: Fluticasone/Salmeterol (Advair 100mcg/50mcg -) 1 puff IH BID [facility] Last Admin: 12/17/19 21:34 Dose: Not Given Documented by: Senna/Docusate Sodium (Pericolace -) 2 tablet PO BID [facility] Last Admin: 12/17/19 21:31 Dose: Not Given Documented by: Solifenacin (Vesicare -) 10 mg PO DAILY [facility] Last Admin: 12/17/19 10:57 Dose: 10 mg Documented by: Zolpidem Tartrate (Ambien -) 5 mg PO HS PRN PRN Reason: INSOMNIA Last Admin: 12/17/19 21:25 Dose: 5 mg Documented by: - Objective Vital Signs: Vital Signs Temperature 98.8 F 12/18/19 05:55 Pulse Rate 72 12/18/19 05:55 Respiratory Rate 18 12/18/19 05:55 Blood Pressure 123/71 12/18/19 05:55 O2 Sat by Pulse Oximetry (%) 94 L 12/18/19 05:55 Labs: CBC, BMP 12/16/19 05:50 12/15/19 06:05 Problem List - Problems (1) S/P TKR (total knee replacement) Code(s): Z96.659 - PRESENCE OF UNSPECIFIED ARTIFICIAL KNEE JOINT (2) Prophylactic measure Assessment/Plan: SCDs, TEDs -ASA 81mg PO BID x 6 weeks Code(s): Z29.9 - ENCOUNTER FOR PROPHYLACTIC MEASURES, UNSPECIFIED (3) S/P revision of total knee Assessment/Plan: POD #4 Code(s): Z96.659 - PRESENCE OF UNSPECIFIED ARTIFICIAL KNEE JOINT (4) COVID-19 ruled out Code(s): Z03.818 - ENCNTR FOR OBS FOR SUSP EXPSR TO OTH BIOLG AGENTS RULED OUT (5) HTN (hypertension) Code(s): I10 - ESSENTIAL (PRIMARY) HYPERTENSION (6) HLD (hyperlipidemia) Code(s): E78.5 - HYPERLIPIDEMIA, UNSPECIFIED (7) Asthma Code(s): J45.909 - UNSPECIFIED ASTHMA, UNCOMPLICATED
--- NOTE | 2019-12-18 08:48 | PN ---
Progress Note (short form) - Note Progress Note: Surgery: Pt sates that she is getting oob and ambulating with PT. Voiding without difficulty and having BM. Vital Signs Period Temp Pulse Resp BP Sys/Vora Pulse Ox Last 24 Hr 98.1 F-98.9 F 72-82 18-19 104-141/60-91 94-98 TRENT: 90 ml serosangrenous GEN: A&0x3, NAD Left knee: dressing c/d/i. Trent removed with the tip intact. Reapplied pressure dressing over ostomy and magdalena wrap. 5/5 dorsi and plantar flexion b/l. No calf tenderness or swelling noted. CBC, BMP 12/16/19 05:50 12/15/19 06:05 A/P: 74 yo female s/p Left knee revision, POD#4 Doing well, drain removed today Continue aspirin 81 mg BID for DVT ppx Continue physical therapy, plan is for discharge to home D/w Dr. Egan
[2019-12-18] MEDS: FLUTICASONE/SALMETEROL 100 MCG/50 MCG DISKUS IH SCH (09:53)
[2019-12-18] MEDS ORDERED: PT OWN MED DRAWER 7, Y5N ONE (09:56)
[2019-12-18] MEDS: FLUTICASONE PROP 0.05% 16 GM NASAL SPRAY NS SCH (10:01)
[2019-12-18] MEDS: OMEGA-3 ACID ETHYL ESTERS (FATTY-ACIDS) 1 GM CAPSULE (FP) PO SCH (10:01)
[2019-12-18] MEDS: ASPIRIN COATED 81 MG TABLET.EC PO SCH (10:01)
[2019-12-18] MEDS: SENNOSIDES/DOCUSATE COMBO (SENNA PLUS) TABLET (UD) PO SCH (10:02)
[2019-12-18] MEDS: PANTOPRAZOLE 40 MG TABLET PO SCH (10:02)
[2019-12-18] MEDS: CELECOXIB 200 MG CAPSULE PO SCH (10:03)
[2019-12-18] MEDS: SOLIFENACIN SUCCINATE 5 MG TAB PO SCH (10:03)
[2019-12-18] MEDS: HYDROmorphone HCL 2 MG TABLET PO PRN (10:09)
[2019-12-18 11:10] LABS: BASO % 0.5 % (0-2.0); EOS % 14.2 % (0-4.5); HEMATOCRIT 34.4 % (32.4-45.2); HEMOGLOBIN 11.2 GM/dL (10.7-15.3); LYMPH % 22.9 % (8-40); MCH 29.7 pg (25.7-33.7); MCHC 32.4 g/dl (32.0-36.0); MEAN CELL VOLUME 91.6 fl (80-96); MONO % 7.2 % (3.8-10.2); NEUT % 55.2 % (42.8-82.8); PLATELET COUNT 213 K/MM3 (134-434); RBC 3.76 M/mm3 (3.60-5.2); RDW 13.7 % (11.6-15.6); WHITE BLOOD COUNT 3.8 K/mm3 (4.0-10.0)
[2019-12-18 11:36] LABS: POTASSIUM 4.4 mmol/L (3.5-5.1)
[2019-12-18 11:37] LABS: CALCIUM 8.8 mg/dL (8.5-10.1)
[2019-12-18 11:38] LABS: ALBUMIN 2.6 g/dl (3.4-5.0); BLOOD UREA NITROGEN 15.8 mg/dL (7-18); MAGNESIUM 2.3 mg/dL (1.8-2.4)
--- NOTE | 2019-12-18 11:38 | DS ---
Physical Exam: SUBJECTIVE: Patient seen and examined OBJECTIVE: Vital Signs Period Temp Pulse Resp BP Sys/Vora Pulse Ox Last 24 Hr 98.5 F-98.9 F 72-85 18-19 104-141/63-92 94-98 PHYSICAL EXAM GENERAL: The patient is awake, alert, and fully oriented, in no acute distress. HEAD: Normal with no signs of trauma. EYES: PERRL, extraocular movements intact, sclera anicteric, conjunctiva clear. ENT: Ears normal, nares patent, oropharynx clear without exudates, moist mucous membranes. NECK: Trachea midline, full range of motion, supple. LUNGS: Breath sounds equal, clear to auscultation bilaterally, no wheezes, no crackles, no accessory muscle use. HEART: Regular rate and rhythm, S1, S2 without murmur, rub or gallop. ABDOMEN: Soft, nontender, nondistended, normoactive bowel sounds, no guarding, no rebound, no hepatosplenomegaly, no masses. EXTREMITIES: 2+ pulses, warm, well-perfused, no edema. Dressing to left knee c/d/i. Drain removed NEUROLOGICAL: Cranial nerves II through XII grossly intact. Normal speech, gait not observed. PSYCH: Normal mood, normal affect. SKIN: Warm, dry, normal turgor, no rashes or lesions noted. LABS Laboratory Results - last 24 hr 12/18/19 12/18/19 09:57 09:57 WBC 3.8 L RBC 3.76 Hgb 11.2 Hct 34.4 MCV 91.6 MCH 29.7 MCHC 32.4 RDW 13.7 Plt Count 213 D MPV 7.0 L Absolute Neuts (auto) 2.1 Neutrophils % 55.2 Lymphocytes % 22.9 Monocytes % 7.2 Eosinophils % 14.2 H Basophils % 0.5 Nucleated RBC % 0 Sodium 139 Potassium 4.4 Chloride 106 Calcium 8.8 HOSPITAL COURSE: Date of Admission:12/14/19 Date of Discharge: 12/18/19 Problem List - Problems (1) S/P TKR (total knee replacement) Code(s): Z96.659 - PRESENCE OF UNSPECIFIED ARTIFICIAL KNEE JOINT (2) Prophylactic measure Assessment/Plan: SCDs, TEDs -ASA 81mg PO BID x 6 weeks Code(s): Z29.9 - ENCOUNTER FOR PROPHYLACTIC MEASURES, UNSPECIFIED (3) S/P revision of total knee Assessment/Plan: POD #4 Code(s): Z96.659 - PRESENCE OF UNSPECIFIED ARTIFICIAL KNEE JOINT (4) COVID-19 ruled out Code(s): Z03.818 - ENCNTR FOR OBS FOR SUSP EXPSR TO OTH BIOLG AGENTS RULED OUT (5) HTN (hypertension) Code(s): I10 - ESSENTIAL (PRIMARY) HYPERTENSION (6) HLD (hyperlipidemia) Code(s): E78.5 - HYPERLIPIDEMIA, UNSPECIFIED (7) Asthma Code(s): J45.909 - UNSPECIFIED ASTHMA, UNCOMPLICATED Minutes to complete discharge: 35 Discharge Summary Problems reviewed: Yes Reason For Visit: PAIN LEFT KNEE Current Active Problems Asthma (Acute) Asthma attack (Acute) COVID-19 ruled out (Acute) HLD (hyperlipidemia) (Acute) HTN (hypertension) (Acute) Prophylactic measure (Acute) S/P TKR (total knee replacement) (Acute) S/P revision of total knee (Acute) Condition: Improved - Instructions Diet, Activity, Other Instructions: Dr. Egan Discharge Instructions for Knee Replacement Post Operative Instructions Physical activity Physical Therapist will come to your home for the first 5 days. You will be set up with outpatient PT at your first post-operative visit. Use assistive devices for ambulation at all times. Weight bearing as tolerated on your surgical side. Do not put pillow under knee. May put pillow under heel. Wound care Leave your surgical dressing in place. Do not change the dressing until seen by your surgeon in the office. No baths or showers. Do not submerge your incision. Do not apply any ointments or lotions to your incision. Please call the office if your dressing is soiled/dirty or is falling off. Apply Graduated Compression Stockings (TEDS) to both lower extremities - remove daily for hygiene ONLY. Diet There are no dietary restrictions. Eat healthy, high-fiber foods. Drink 6 to 8 glasses of liquid each day. This will assist in keeping your bowels are regular. Pain management Any pain prescription medication ordered should be taken as prescribed for moderate to severe pain. Do not take additional Tylenol while taking Percocet. Take Aspirin 81 mg two times a day for a total of 6 weeks to prevent blood clots. Call Dr. Egan for any of the following: Severe pain not relieved by medication Fever of 101 or higher Excessive bleeding or drainage on dressing Inability to urinate If you experience chest pain or shortness of breath, please seek emergency care immediately. Please call the office at to confirm your post-op appointment for the week following surgery. Referrals: Jesus Egan MD [Staff Physician] - Disposition: HOME - Home Medications Comprehensive Discharge Medication List: Ambulatory Orders Albuterol Sulfate [Albuterol Sulfate Hfa] 2 puff IH ASDIR PRN 12/07/19 Aspirin [Aspirin EC] 81 mg PO DAILY 12/07/19 Cyclobenzaprine HCl [Flexeril 10 mg] 10 mg PO BID PRN 12/07/19 Fluticasone/Salmeterol [Advair Hfa 115-21 Mcg Inhaler] 1 puff IH ASDIR PRN 12/07/19 Icosapent Ethyl [Vascepa] 1 gm PO DAILY 12/07/19 Levothyroxine [Synthroid -] 50 mcg PO DAILY 12/07/19 Meclizine HCl 25 mg PO ASDIR PRN 12/07/19 Oxybutynin Chloride [Oxybutynin Chloride ER] 15 mg PO DAILY 12/07/19 Ropinirole HCl [Requip -] 0.5 mg PO HS 12/07/19 Zolpidem Tartrate [Ambien] 10 mg PO HS 12/07/19 clonazePAM [Klonopin -] 0.5 mg PO BID PRN 12/07/19 Diphenhydramine HCl [Benadryl Capsule -] 2 cap PO PRN PRN 12/12/19 Montelukast Na [Singulair -] 10 mg PO HS 12/13/19 Aspirin Coated [Ecotrin -] 81 mg PO BID #30 tablet.ec 12/18/19 Celecoxib [CeleBREX -] 200 mg PO DAILY #30 capsule 12/18/19 Docusate Sodium [Colace -] 100 mg PO BID PRN capsule 12/18/19 Fluticasone Prop 0.05% Nasal [Flonase -] 1 spray NS DAILY spray 12/18/19 HYDROmorphone [Dilaudid -] 2 mg PO Q4H PRN #10 tablet MDD 8mg 12/18/19 Magnesium Hydrox 2400MG/30Ml [Milk of Magnesia -] 30 ml PO PRN PRN cup 12/18/19 Pantoprazole Sodium [Protonix -] 40 mg PO DAILY tablet.ec 12/18/19 Sennosides/Docusate Sodium [Pericolace -] 2 tablet PO BID tablet 12/18/19 Problem List - Problems (1) S/P TKR (total knee replacement) Code(s): Z96.659 - PRESENCE OF UNSPECIFIED ARTIFICIAL KNEE JOINT (2) Prophylactic measure Code(s): Z29.9 - ENCOUNTER FOR PROPHYLACTIC MEASURES, UNSPECIFIED (3) S/P revision of total knee Code(s): Z96.659 - PRESENCE OF UNSPECIFIED ARTIFICIAL KNEE JOINT (4) COVID-19 ruled out Code(s): Z03.818 - ENCNTR FOR OBS FOR SUSP EXPSR TO OTH BIOLG AGENTS RULED OUT (5) HTN (hypertension) Code(s): I10 - ESSENTIAL (PRIMARY) HYPERTENSION (6) HLD (hyperlipidemia) Code(s): E78.5 - HYPERLIPIDEMIA, UNSPECIFIED (7) Asthma Code(s): J45.909 - UNSPECIFIED ASTHMA, UNCOMPLICATED This patient is new to me today: Yes Date on this admission: 12/18/19 Emergency Visit: No Critical Care patient: No - Discharge Referral Referred to [facility] Med P.C.: No
[2019-12-18 11:41] LABS: CREATININE 0.5 mg/dL (0.55-1.3)
[2019-12-18 11:42] LABS: BILIRUBIN,TOTAL 0.7 mg/dL (0.2-1)
[2019-12-18 11:43] LABS: TOT PROT 5.6 g/dl (6.4-8.2)
--- NOTE | 2019-12-18 13:08 | PATH ---
Surgical Pathology Report Patient Name: HUMBLE BEE Med. Rec. #: [id number] /Age/Gender: 1945 (Age: 74) / F Account: [id number] Location: [address] [place] [address]/[facility] Taken: 12/14/2019 Received: 12/17/2019 Reported: 12/18/2019 Physicians: Saurabh Egan M.D. Specimen(s) Received OLD KNEE IMPLANT Clinical History Left knee pain Final Diagnosis OLD KNEE IMPLANTS, REMOVAL: SURGICAL HARDWARE. MACROSCOPIC DIAGNOSIS. Electronically Signed Margaret Castellanos M.D. Gross Description Received fresh labeled "old knee implants," are 4 white plastic and jaquez metallic foreign bodies, consistent with a knee explant. The specimens range from 1.3-7.4 cm in greatest dimension. No soft tissue is present. No sections are submitted, gross only. /12/17/2019 saudi12/17/2019
[2019-12-18 15:08] VITALS: BP 115/71; PULSE 73; TEMP 99
== END 2019-12-18 15:27 | disposition home or self-care (01) | DRG 468 ==
LOC: J2C 04:22 → JICU 14:50 → J6S 12-16 13:42
PROVIDERS: ADMIT Orthopaedic Surgery Orthopaedic Surgery of the Spine; ATTEND Nurse Practitioner Acute Care
PROC: 0SRD0J9 Replacement of Left Knee Joint with Synthetic Substitute, Cemented, Open Approach (ICD-10-PCS; 2019-12-14)
PROC: 0SPD0JZ Removal of Synthetic Substitute from Left Knee Joint, Open Approach (ICD-10-PCS; principal; 2019-12-14 09:30)
DX: T84.033A Mechanical loosening of internal left knee prosthetic joint, initial encounter (principal); F32.9 Major depressive disorder, single episode, unspecified; G47.00 Insomnia, unspecified; K21.9 Gastro-esophageal reflux disease without esophagitis; E66.9 Obesity, unspecified; Z68.35 Body mass index [BMI] 35.0-35.9, adult; J45.909 Unspecified asthma, uncomplicated; Y83.9 Surgical procedure, unspecified as the cause of abnormal reaction of the patient, or of later complication, without mention of misadventure at the time of the procedure; I10 Essential (primary) hypertension; E78.5 Hyperlipidemia, unspecified
CPT/HCPCS: 36415; 73560-TC-LT-FY; 80048; 80053; 83735; 85025; 85027; 88300-TC; 94760; 97116-GP; C9803; U0003

== ENCOUNTER 2020-10-24 04:14 | Day surgery (SDC) | payer OTHER, BC ==
[2020-10-22 14:13] VITALS: BMI 34.1
[2020-10-24 06:59] VITALS: BP 111/67; PULSE 72; TEMP 97.5
[2020-10-24] MEDS ORDERED: LIDOCAINE HCL/PF 1% SDV 5ML VIAL ONE (07:32)
[2020-10-24] MEDS ORDERED: DEXAMETHASONE SOD PHOSPHATE 10 MG/1 ML VIAL ONE (07:32)
== END 2020-10-24 08:45 | disposition home or self-care (01) ==
LOC: JASU-SURG 04:14
PROVIDERS: ATTEND Pain Medicine Pain Medicine
DX: Z53.8 Procedure and treatment not carried out for other reasons (principal)
CPT/HCPCS: J1100